=== PATIENT | female | born 1990 | race Asian ===

== ENCOUNTER → 2024-02-19 | Outpatient (CLI) | payer OTHER, SELFPAY ==
[2024-02-19 14:14] LABS: Basophils # (Auto) 0.1 Thou/mm3 (0.0-0.2); Basophils % (Auto) 1 % (0-2.5); Eosinophils # (Auto) 0.5 Thou/mm3 (0.0-0.5); Eosinophils % (Auto) 6 % (0-10); Hematocrit 38.7 % (36.0-46.0); Hemoglobin 12.8 g/dL (12.0-16.0); Immature Granulocytes % (Auto) 0 % (0-0); Immature Granulocytes Auto 0.03 Thou/mm3 (0.00-0.00); Lymphocytes # (Auto) 2.4 Thou/mm3 (1.0-4.8); Lymphocytes % (Auto) 29 % (10-50); Mean Corpuscular HGB Conc 33.1 g/dl (31.0-37.0); Mean Corpuscular Hemoglobin 30.8 pg (25.0-35.0); Mean Corpuscular Volume 93 fL (80-100); Monocytes # (Auto) 0.4 Thou/mm3 (0.0-0.8); Monocytes % (Auto) 4 % (0-12); Neutrophils # (Auto) 4.9 Thou/mm3 (1.8-7.7); Neutrophils % (Auto) 60 % (37-80); Nucleated Red Blood Cell % 0 /100 WBC (0); Platelet Count 227 Thou/mm3 (140-440); RDW Standard Deviation 42.6 fL (36.4-46.3); Red Blood Count 4.15 Miln/mm3 (4.00-5.20); White Blood Count 8.2 Thou/mm3 (3.6-11.0)
[2024-02-19 14:33] LABS: Ferritin 25 ng/mL (7.3-270.7)
== END | disposition home or self-care (01) ==
PROVIDERS: PCP Internal Medicine; Referring Provider Internal Medicine; Visit Provider Internal Medicine
DX: D50.9 Iron deficiency anemia, unspecified (principal)
CPT/HCPCS: 36415; 82728; 85025

== ENCOUNTER 2024-03-27 14:41 | Outpatient (AMB) | payer OTHER, SELFPAY ==
--- NOTE | 2024-03-27 15:00 | ACNOTE_ITS ---
Allergies/Meds Allergies & Medications Allergies No Known Allergies Allergy (Verified 03/27/24 15:00) Medication Reconciliation No Known Home Medications 03/27/24 [History Confirmed 03/27/24] MA Intake Visit Data Collection New Patient or Established: New Patient (never been to [facility]) Seen by Clinical Staff ONLY (RN/MA): No Pain Present Currently: No Pain scale:: 0 Pain Scale Used: [place]/[employer]ical [employer] Required: No PCP or OBGYN visit in last 3 months: No Hx Now: No Do You Feel Safe at Home: Yes Authorities Contacted: N/A Smoking Status Smoking Status: Never smoker For Televisit only Telemed Video/Phone Visit: Yes Verbal consent obtained for Telemed visit?: Yes Verbal Consent witness name: SHANEL ANGELES Telemed Video/Phone visit w/Clinical Staff: 21-30 min Immunization / Flu Flu Vaccine in the Last 12 Months: No Flu Vaccine Exclusion Criteria: No Exclusion Criteria Past Medical History Social History SMOKING STATUS: Smoking status: Never smoker Patient Portal Questionaires Social History Tobacco History Smoking Status: Never smoker Domestic Abuse History Do You Feel Safe at Home: Yes Review of Systems Report any current symptoms Only answer those that you have currently: Past Medical History Past Medical History Have you ever been diagnosed with any of the following: History of Present Illness HPI Narrative Had a telehealth visit for routine health visit. Patient currently did not have any significant symptoms but she had a significant family history of hypothyroidism in her mother for which patient was worried and wants to check her thyroid hormone levels. Patient denies significant weight changes, weight loss, menstrual irregularities. Occasional fatigue but working long hours. Review of Systems Review of Systems Narrative Review of Systems: Constitutional: No Weight Change, No Fever, No Chills, No Night Sweats, No Fatigue, No Malaise ENT/Mouth: No Hearing Changes, No Ear Pain, No Nasal Congestion, No Sinus Pain, No Hoarseness, No sore throat, No Rhinorrhea, No Swallowing Difficulty Eyes: No Eye Pain, No Swelling, No Redness, No Foreign Body, No Discharge, No Vision Changes Cardiovascular: No Chest Pain, No SOB, No PND, No Dyspnea on Exertion, No Orthopnea, No Edema, No Palpitations Respiratory: No Cough, No Sputum, No Wheezing, No Dyspnea Gastrointestinal: No Nausea, No Vomiting, No Diarrhea, No Constipation, No Pain, No Heartburn, No Anorexia, No Dysphagia, No Hematochezia, No Melena, No Flatulence, No Jaundice Genitourinary: No Dysuria, No Urinary Frequency, No Hematuria, No Urinary Incontinence, No Urgency, No Flank Pain, No Urinary Flow Changes, No Hesitancy Musculoskeletal: No Arthralgias, No Myalgias, No Joint Swelling, No Joint Stiffness, No Back Pain, No Neck Pain, No Injury History Skin: No Skin Lesions, No Pruritis Neuro: No Weakness, No Numbness, No Paresthesias, No Loss of Consciousness, No Syncope, No Dizziness, No Headache, No Coordination Changes, No Recent Falls Assessment & Plan Diagnosis / Problem List (1) Fatigue: Plan: TSH, lipid panel, anti-TPO antibodies were ordered -Will follow-up once the lab work was done (2) Annual physical exam: Status: Acute Assessment & Plan: -Patient had history of hypothyroidism in her mother for which patient was worried and wants to know her thyroid status -Other than that patient does not have any other significant symptoms Plan: -TSH, lipid panel, anti-TPO antibodies were ordered -Will follow-up once the lab work was done Orders: Orders Thyroid Stimulating Hormone 3 Days Lipid Panel 3 Days Thyroid Peroxidase Antibodies* 3 Days Additional Assessment Internal Medicine Attending Note: Case discussed with and agree with note and management plan of Resident Physician as per Resident's Note above. Issues of concern for present visit are as follows: Telehealth visit for labs, family history of hypothyroidism. Thyroid labs to be checked today along with lipid panel. Some occasional fatigue, works as a resident physician Kevin Miramontes MD telehealth Physician Billing Established Patient Established Patient: E/M Level 2-CPT 70615 Office Procedures [facility] Level of Care Nursing/Assessment Patient Status: Initial/New Patient Nursing Assessment/Reassessment: Medication Reconciliation and Update PMH in EMR Coordination of Care: Complex Care and Chronic Disease 1-5, Consent,records obtained, informed consent, Education Simp Pt/Fam, Lab and Imaging orders and Staff clarify orders New Patient Charge New Patient Point Assignment: [id number] Telehealth Telemed Phone/Video with patient at home & Dr,PA,DIRECTOR CLINICAL APPLICATIONS: Yes
== END 2024-03-27 15:20 | disposition home or self-care (01) ==
LOC: HODAHC 14:41
PROVIDERS: Supervising Provider Internal Medicine
DX: R53.83 Other fatigue (principal); Z83.49 Family history of other endocrine, nutritional and metabolic diseases
CPT/HCPCS: 99203; 99212; G0463

== ENCOUNTER → 2024-04-03 | Outpatient (CLI) | payer OTHER, SELFPAY ==
[2024-04-03 09:53] LABS: Cardiac Risk Estimate 1.8 RATIO (3.7-5.6); Cholesterol 150 mg/dL (132-200); HDL Cholesterol 82 mg/dL (40-60); LDL Cholesterol,Calculated 58 mg/dL (0-130); Thyroid Stimulating Hormone 1.66 uIU/mL (0.55-4.78); Triglycerides 51 mg/dL (30-150)
[2024-04-06 07:04] LABS: Thyroid Peroxidase Antibodies* <1 IU/mL (<9)
== END | disposition home or self-care (01) ==
LOC: COPL 08:20
DX: Z00.00 Encounter for general adult medical examination without abnormal findings (principal)
CPT/HCPCS: 36415; 80061; 84443; 86376